=== PATIENT | male | born 1950 | race Caucasian/White ===

== ENCOUNTER 2016-12-11 06:01 | Inpatient (IN) | payer MEDICARE, MEDICAID ==
[~2016-12-11] VITALS: Ht 182.9 cm; Wt 81.6 kg
[~2016-12-11 06:01] MED LIST: TAMS-11 PO
[2016-12-11] MEDS ORDERED: LACTATED RINGERS 1,000 ML IV SCH (06:20)
[2016-12-11] MEDS ORDERED: HYDR-519 PO (07:15)
[2016-12-11 07:29] LABS: CLARITY URINE CLOUDY (CLEAR); COLOR URINE YELLOW (YELLOW); GLUCOSE URINE NEGATIVE (NEGATIVE); KETONES URINE TRACE (NEGATIVE); LEUKOCYTE ESTERASE URINE 3+ (NEGATIVE); NITRITE URINE POSITIVE (NEGATIVE); OCCULT BLOOD URINE TRACE (NEGATIVE); PH URINE 5.5 (4.5-8.0); PROTEIN URINE NEGATIVE (NEGATIVE); SPECIFIC GRAVITY URINE 1.017 (1.005-1.030)
[2016-12-11] MEDS ORDERED: DEXAMETHASONE 4MG/ML 1ML VIAL ONE (07:47)
[2016-12-11] MEDS ORDERED: ONDANSETRON HCL 4MG/2ML VIAL ONE (07:47)
[2016-12-11] MEDS ORDERED: GENTAMICIN SULF 40MG/ML 2ML VIAL ONE (07:47)
[2016-12-11] MEDS ORDERED: LABETALOL HCL 20MG/4ML CARPUJECT IV PRN (08:00)
[2016-12-11] MEDS ORDERED: MEPERIDINE HCL/PF 25MG/ML CPJ IV PRN (08:00)
[2016-12-11] MEDS ORDERED: ONDANSETRON HCL 4MG/2ML VIAL IV PRN (08:00)
[2016-12-11] MEDS ORDERED: HYDROMORPHONE HCL/PF 2MG/ML CPJ IV PRN (08:00)
[2016-12-11] MEDS ORDERED: MAGNESIUM HYDROXIDE 400MG/5ML 30ML UDC PO PRN (08:30)
[2016-12-11] MEDS ORDERED: LORAZEPAM 1MG TABLET PO PRN (08:30)
[2016-12-11] MEDS ORDERED: HYDROCODONE/ACETAMINOPHEN 5/325MG TABLET PO PRN (08:30)
[2016-12-11] MEDS ORDERED: HYDROCODONE/ACETAMINOPHEN 10/325MG TABLET PO PRN (08:30)
[2016-12-11] MEDS: DOCUSATE SODIUM 100MG CAPSULE PO SCH ×2 (09:00→16:58)
[2016-12-11 10:34] VITALS: BP 141/84
[2016-12-11 12:04] VITALS: BP 141/84
[2016-12-11 16:03] VITALS: BP 110/65
[2016-12-11] MEDS: GENTAMICIN 80MG PREMIX 100 ML IV SCH (17:21)
[2016-12-11 20:00] VITALS: BP 125/73
[2016-12-12] VITALS: BP 135/73
[2016-12-12] MEDS: GENTAMICIN 80MG PREMIX 100 ML IV SCH ×2 (00:01→10:19)
[2016-12-12 04:00] VITALS: BP 120/80
[2016-12-12 07:33] LABS: BASOPHILS % 0.1 % (0.0-2.0); HEMATOCRIT. 32.6 % (42.0-52.0); HEMOGLOBIN. 11.3 g/dL (14.0-18.0); LYMPHOCYTES % 24.3 % (20.0-50.0); MEAN CORPUSCULAR HEMOGLOBIN 32.7 pg (28.0-32.0); MEAN CORPUSCULAR VOLUME 93.9 fL (80.0-94.0); MEAN PLATELET VOLUME 7.3 fl (7.4-10.4); MONOCYTES % 9.5 % (2.0-8.0); NEUTROPHILS % 66.1 % (40.0-76.0); PLATELET 253 x1000/uL (130-400); RED BLOOD CELL COUNT 3.47 mill/uL (4.7-6.1); RED CELL DISTRIBUTION WIDTH 12.7 % (11.6-14.6)
[2016-12-12 07:56] LABS: CARBON DIOXIDE 28 mEq/L (21-32); CHLORIDE 105 mEq/L (98-107)
[2016-12-12 08:00] VITALS: BP 129/81
[2016-12-12] MEDS: DOCUSATE SODIUM 100MG CAPSULE PO SCH (10:19)
[2016-12-12 12:00] VITALS: BP 129/76
[2016-12-12 14:45] VITALS: BP 129/76
== END 2016-12-12 15:20 | disposition home or self-care (01) | DRG 713 ==
LOC: OR 06:01 → 6EST 06:02
PROVIDERS: ADMIT Urology; ATTEND Urology
PROC: 0TJB8ZZ Inspection of Bladder, Via Natural or Artificial Opening Endoscopic (ICD-10-PCS; 2016-12-11)
PROC: 0VT08ZZ Resection of Prostate, Via Natural or Artificial Opening Endoscopic (ICD-10-PCS; principal; 2016-12-11 07:30)
DX: N40.1 Benign prostatic hyperplasia with lower urinary tract symptoms (principal); N13.8 Other obstructive and reflux uropathy; R33.8 Other retention of urine; Z90.49 Acquired absence of other specified parts of digestive tract
CPT/HCPCS: 36415; 80048; 81001; 85025; 88305; J1100; J1580; J2405; J7120